=== PATIENT | male | born 1975 | race Caucasian/White ===

== ENCOUNTER 2019-01-02 09:30 | Emergency (ER) | payer OTHER ==
[2019-01-02 09:38] VITALS: BP 138/89; PULSE 71; RESP 17; TEMP 98
[2019-01-02] MEDS ORDERED: NALOXONE 0.4 MG/ML 1 ML VIAL IV PRN (10:03)
[2019-01-02] MEDS ORDERED: MORPHINE SULFATE 2 MG/ML SYRINGE IV PRN (10:03)
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
[2019-01-02] MEDS ORDERED: SODIUM CHLORIDE 0.9% 1,000 ML IV SCH (10:15)
--- NOTE | 2019-01-02 10:23 | XR ---
EXAMINATION TYPE: XR chest 2V DATE OF EXAM: 01/02/2019 COMPARISON: NONE HISTORY: Chest and left clavicle pain after fall injury this weekend. TECHNIQUE: Frontal and lateral views of the chest are obtained. FINDINGS: Lateral view is slightly suboptimal as patient unable to raise arm. There is no focal air space opacity, pleural effusion, or pneumothorax seen. The cardiac silhouette size is within normal limits. Slight underlying scoliotic curvature positioning. Acute comminuted displaced fracture of mid dle one third left clavicle noted. IMPRESSION: No acute cardiopulmonary process. Acute comminuted displaced middle one third left clavi cular fracture.
[2019-01-02 10:45] LABS: Basophils % (A) 0 %; Eosinophils # (A) 0.2 k/uL (0-0.7); Eosinophils % (A) 2 %; HCT 43.8 % (39.0-53.0); HGB 14.6 gm/dL (13.0-17.5); Lymphocytes # (A) 2.6 k/uL (1.0-4.8); Lymphocytes % (A) 28 %; MCH 30.4 pg (25.0-35.0); MCHC 33.4 g/dL (31.0-37.0); MCV 91.1 fL (80.0-100.0); Mean Platelet Volume 6.4; Monocytes # (A) 0.6 k/uL (0-1.0); Monocytes % (A) 6 %; Neutrophils # (A) 5.8 k/uL (1.3-7.7); Neutrophils % (A) 62 %; Platelet Count 239 k/uL (150-450); RBC 4.81 m/uL (4.30-5.90); RDW 12.6 % (11.5-15.5); WBC 9.3 k/uL (3.8-10.6)
[2019-01-02 10:53] LABS: ALT 24 U/L (21-72); AST 24 U/L (17-59); African American GFR (CKD) >90 (>60 ml/min/1.73 sqM); Albumin 4.2 g/dL (3.5-5.0); Alkaline Phosphatase 63 U/L (38-126); Anion Gap 9 mmol/L; Blood Urea Nitrogen 13 mg/dL (9-20); Calcium 9.4 mg/dL (8.4-10.2); Carbon Dioxide 24 mmol/L (22-30); Chloride 108 mmol/L (98-107); Glucose 93 mg/dL (74-99); Potassium 4.6 mmol/L (3.5-5.1); Sodium 141 mmol/L (137-145); Total Bilirubin 0.5 mg/dL (0.2-1.3); Total Protein 7.1 g/dL (6.3-8.2)
[2019-01-02 10:55] LABS: INR 0.9 (<1.2); Partial Thromboplastin Time 23.1 sec (22.0-30.0); Prothrombin Time 9.4 sec (9.0-12.0)
== END 2019-01-02 11:27 | disposition home or self-care (01) ==
LOC: EC 09:30 → 4SSUR 10:03 → UNDOADMIN 10:03 → 4SSUR 10:28 → EC 11:27
DX: S42.012A Anterior displaced fracture of sternal end of left clavicle, initial encounter for closed fracture (principal); F17.200 Nicotine dependence, unspecified, uncomplicated; Z79.899 Other long term (current) drug therapy; V19.9XXA Pedal cyclist (driver) (passenger) injured in unspecified traffic accident, initial encounter
CPT/HCPCS: 71046; 80053; 85025; 85610; 85730; 99283

== ENCOUNTER 2019-01-11 12:13 | Day surgery (SDC) | payer OTHER ==
[2019-01-10 08:34] VITALS: BMI 31.8
[2019-01-11] MEDS ORDERED: MIDAZOLAM 2 MG/2 ML VIAL IV PRN (12:22)
[2019-01-11] MEDS ORDERED: DEXAMETHASONE SOD PHOSPHATE 10 MG/ML 1 ML VIAL IV ONE (12:22)
[2019-01-11] MEDS ORDERED: LIDOCAINE 1% 20 ML VIAL (10MG/ML) FOR IV START INTRADERMA PRN (12:22)
[2019-01-11] MEDS ORDERED: SCOPOLAMINE 1.5MG/72HR PATCH TRANSDERM ONE (12:22)
[2019-01-11] MEDS ORDERED: ONDANSETRON 4 MG/2 ML VIAL IVP ONE (12:22)
[2019-01-11] MEDS ORDERED: LACTATED RINGERS 1,000 ML IV SCH (12:22)
[2019-01-11] MEDS ORDERED: MIDAZOLAM 2 MG/2 ML VIAL ONE (13:51)
[2019-01-11] MEDS ORDERED: LIDOCAINE 1% INJ 10MG/ML (20 ML MDV) ONE (13:51)
[2019-01-11] MEDS ORDERED: HYDROmorphone (PF) 1 MG/ML ONE (13:51)
[2019-01-11] MEDS ORDERED: KETAMINE 10 MG/ML 20 ML VIAL ONE (13:51)
[2019-01-11] MEDS ORDERED: PROPOFOL 10 MG/ML 20 ML VIAL IV ONE (13:51)
[2019-01-11] MEDS ORDERED: fentaNYL (PF) 50 MCG/ML 2 ML AMP ONE (13:51)
[2019-01-11] MEDS ORDERED: SUCCINYLCHOLINE CHLORIDE 100 MG/5 ML SYR IV ONE (13:51)
[2019-01-11] MEDS ORDERED: BUPIVACAINE (PF) 0.25% 30 ML VIAL SQ ONE ×3 (14:31→15:37)
[2019-01-11] MEDS ORDERED: ceFAZolin 1,000 MG in SODIUM CHLORIDE 0.9% 1,000 ML IRRIGATION ONE (14:48)
[2019-01-11 16:01] VITALS: TEMP 97.8
[2019-01-11] MEDS: HYDROmorphone 0.5 MG/0.5 ML SYRINGE IVP PRN ×2 (16:26→16:35)
[2019-01-11] MEDS ORDERED: LACTATED RINGERS 1,000 ML IV ONE (16:46)
[2019-01-11 16:47] VITALS: RESP 16
[2019-01-11] MEDS ORDERED: HYDROcodone/APAP 5-325MG 1 EACH TAB PO ONE (17:01)
[2019-01-11 17:25] VITALS: BP 148/79; PULSE 81
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
== END 2019-01-11 17:38 | disposition home or self-care (01) ==
LOC: OR 12:13
PROVIDERS: ATTEND Orthopaedic Surgery Sports Medicine
DX: S42.022A Displaced fracture of shaft of left clavicle, initial encounter for closed fracture (principal); K21.9 Gastro-esophageal reflux disease without esophagitis; F17.210 Nicotine dependence, cigarettes, uncomplicated; Z79.899 Other long term (current) drug therapy; V19.9XXA Pedal cyclist (driver) (passenger) injured in unspecified traffic accident, initial encounter
CPT/HCPCS: 23515; C1713; J2250; J1100; J0690 ×2; J2405; J2001; J3010; J1170 ×2; J0330; J2704

== ENCOUNTER 2019-09-30 19:01 | Emergency (ER) | payer OTHER ==
[2019-09-30 19:09] VITALS: RESP 18
[2019-09-30] MEDS ORDERED: DIPH,PERTUS(ACELL)TETVAC-LF 0.5 ML VIAL IM ONE (19:16)
[2019-09-30] MEDS ORDERED: SODIUM CHLORIDE 0.9% 500 ML 500 ML IV STA (19:16)
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
--- NOTE | 2019-09-30 19:44 | XR ---
EXAMINATION TYPE: XR chest 2V DATE OF EXAM: 09/30/2019 COMPARISON: NONE HISTORY: Clavicle fracture TECHNIQUE: 2 views FINDINGS: Heart and mediastinum are normal. Lungs are clear of infiltrate. There is mid shaft fractur e of the left clavicle with a plate and screws. There is angulation at the fracture site in this is p robably refractured. There is no pneumothorax. IMPRESSION: Angulation at the clavicle fracture consistent with bending of the plate and refracture. No cardiopulmonary disease.
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
--- NOTE | 2019-09-30 19:47 | XR ---
EXAMINATION TYPE: XR shoulder complete LT DATE OF EXAM: 09/30/2019 COMPARISON: 01/02/2019 HISTORY: Pain. Trauma. TECHNIQUE: 3 views FINDINGS: Glenohumeral joint is intact. AC joint is intact. Proximal humerus is intact. There is comminuted mid shaft fracture of the left clavicle with angulation at the fracture site. Thi s is repeat fracture at the same location as old exam. IMPRESSION: The plate is bent and there is apparent repeat fracture at the same location of the mid s haft left clavicle.
[2019-09-30 20:17] VITALS: BP 144/74; PULSE 77; TEMP 98.8
== END 2019-09-30 20:15 | disposition home or self-care (01) ==
LOC: EC 19:01
DX: S42.002A Fracture of unspecified part of left clavicle, initial encounter for closed fracture (principal); K21.9 Gastro-esophageal reflux disease without esophagitis; Z87.891 Personal history of nicotine dependence; V86.95XA Unspecified occupant of 3- or 4- wheeled all-terrain vehicle (ATV) injured in nontraffic accident, initial encounter
CPT/HCPCS: 71046; 96360; 99283

== ENCOUNTER → 2019-10-10 | Outpatient (CLI) | payer OTHER ==
--- NOTE | 2019-10-11 09:44 | ECHOF ---
Referral Reason:R00.1 Bradycardia MEASUREMENTS -------- HEIGHT: 165.1 cm WEIGHT: 91.6 kg BP: RVIDd: 3.3 cm (< 3.3) IVSd: 1.2 cm (0.6 - 1.1) LVIDd: 4.3 cm (3.9 - 5.3) LVPWd: 1.2 cm (0.6 - 1.1) IVSs: 1.5 cm LVIDs: 3.9 cm LVPWs: 1.0 cm LA Diam: 4.0 cm (2.7 - 3.8) LAESV Index (A-L): 24.44 ml/m Ao Diam: 3.3 cm (2.0 - 3.7) AV Cusp: 1.9 cm (1.5 - 2.6) MV EXCURSION: 22.213 mm (> 18.000) MV EF SLOPE: 65 mm/s (70 - 150) EPSS: 0.7 cm MV E Keron: 0.69 m/s MV DecT: 207 ms MV A Keron: 0.63 m/s MV E/A Ratio: 1.11 RAP: 5.00 mmHg RVSP: 11.95 mmHg FINDINGS -------- Sinus rhythm. This was a technically good study. The left ventricular size is normal. There is mild concentric left ventricular hypertrophy. Overa ll left ventricular systolic function is normal with, an EF between 55 - 60 %. The diastolic fillin g pattern is normal for the age of the patient 6.84. The right ventricle is normal in size. Normal LA size by volume 22+/-6 ml/m2. The right atrial size is normal. The aortic valve is trileaflet, and appears structurally normal. No aortic stenosis or regurgitation. The mitral valve is normal. Mild mitral regurgitation is present. Mild tricuspid regurgitation present. Right ventricular systolic pressure is normal at < 35 mmHg. There is no pulmonic regurgitation present. The aortic root size is normal. There is no pericardial effusion. CONCLUSIONS -------- 1. There is mild concentric left ventricular hypertrophy. 2. Overall left ventricular systolic function is normal with, an EF between 55 - 60 %. 3. Normal LA size by volume 22+/-6 ml/m2. 4. The aortic valve is trileaflet, and appears structurally normal. No aortic stenosis or regurgitati on. 5. Mild mitral regurgitation is present. 6. Mild tricuspid regurgitation present. 7. There is no pericardial effusion. [employer] SALES REPRESENTATIVE: Nicol Prince RDCS
== END | disposition home or self-care (01) ==
LOC: RADECHMAIN 15:27
PROVIDERS: ATTEND Family Medicine
DX: I08.1 Rheumatic disorders of both mitral and tricuspid valves (principal)
CPT/HCPCS: 93306

== ENCOUNTER 2020-01-22 09:57 | Day surgery (SDC) | payer OTHER ==
[2020-01-18 15:13] VITALS: BMI 33.6
[~2020-01-22 09:57] MED LIST: LACTATED RINGERS 1,000 ML IV SCH
[2020-01-22 10:33] VITALS: RESP 16; TEMP 98.3
[2020-01-22] MEDS ORDERED: LIDOCAINE 1% (10MG/ML) FOR IV START INTRADERMA ONE (10:42)
[2020-01-22] MEDS ORDERED: LIDOCAINE 1% INJ 10MG/ML (20 ML MDV) ONE (11:26)
[2020-01-22] MEDS ORDERED: PROPOFOL 10 MG/ML 20 ML VIAL IV ONE (11:26)
--- NOTE | 2020-01-22 11:57 | P.PCN ---
Date of Procedure: 01/22/20 Description of Procedure: BRIEF HISTORY: Patient is a 44-year-old male presenting for outpatient colonoscopy for screening for malignant neoplasm of the colon. He does report a family history of colon cancer in his sister who passed from the disease at the age of 36. Last colonoscopy approximately 10 years ago. No change in bowel habits or blood per rectum. PROCEDURE PERFORMED: Colonoscopy. PREOPERATIVE DIAGNOSIS: Screening for malignant neoplasm of the colon, high risk screening for malignant neoplasm of the colon, family history of colon cancer, last colonoscopy approximately 10 years ago. ESTIMATED BLOOD LOSS: Minimal. IV sedation per Anesthesia. PROCEDURE: After informed consent was obtained, the patient, was brought into the endoscopy unit. IV sedation was administered by Anesthesia under continuous monitoring. Digital rectal examination was normal. Initially the Olympus CF-190 flexible video colonoscope was then inserted in the rectum, gradually advanced into the cecum without any difficulty. Careful examination was performed as the scope was gradually being withdrawn. Ileocecal valve and the appendiceal orifice were visualized and appeared normal. Prep was excellent. Mucosa of the cecum, ascending colon, transverse colon, descending colon, sigmoid colon, and rectum appeared normal. Retroflexion was performed in the rectum and no lesions were seen, low-grade internal hemorrhoids seen. The patient tolerated the procedure well. IMPRESSION: Normal-appearing colon from rectum to cecum. Internal hemorrhoids. RECOMMENDATIONS: Findings of this examination were discussed with the patient and his family. Okay to resume diet. Okay to resume medication. Would recommend repeat colonoscopy in 5 years for family history of colon cancer/high risk screening.
[2020-01-22 12:11] VITALS: BP 125/82; PULSE 50
== END 2020-01-22 12:24 ==
LOC: ORWHC2ENDO 09:57
PROVIDERS: ATTEND Internal Medicine
DX: Z12.11 Encounter for screening for malignant neoplasm of colon (principal); K64.8 Other hemorrhoids; Z80.0 Family history of malignant neoplasm of digestive organs; K08.89 Other specified disorders of teeth and supporting structures; E78.5 Hyperlipidemia, unspecified; K21.9 Gastro-esophageal reflux disease without esophagitis; Z87.891 Personal history of nicotine dependence; Z79.899 Other long term (current) drug therapy; Z98.52 Vasectomy status; Z98.890 Other specified postprocedural states; Z87.81 Personal history of (healed) traumatic fracture
CPT/HCPCS: J2001; J2704; G0105